=== PATIENT | male | born 1945 | race Caucasian/White ===

== ENCOUNTER 2019-07-01 21:08 | Inpatient (IN) | payer MEDICARE, OTHER ==
[2019-07-01] MEDS ORDERED: Adacel (T-DAP) 0.5 ML SYRINGE ONE (21:15)
[2019-07-01 21:32] LABS: #Eosinphils 0.1 thou/uL (0.0-0.7); #Lymphocytes 3.1 thou/uL (1.20-3.40); #Neutrophils 9.5 thou/uL (1.40-6.50); %Basophils 0.1 % (0.0-1.0); %Eosinophils 0.4 % (0.0-10.0); %Lymphocytes 22.6 % (21.0-51.0); %Neutrophils 69.9 % (42.0-75.0); Hemoglobin 13.9 g/dL (14.0-18.0); Mean Corpuscular HGB CONC 33.6 g/dL (32.0-36.0); Mean Corpuscular Hemoglobin 31.5 pg (27.0-31.0); Mean Corpuscular Volume 93.7 fL (78.0-98.0); Mean Platelet Volume 9.7 fL (7.4-10.4); Platelet Count 160 thou/uL (130-400); RBC Distribution Width 11.6 % (11.5-14.5); White Blood Cell (WBC) Count 13.6 thou/uL (4.8-10.8)
--- NOTE | 2019-07-01 21:37 | RAD ---
EXAM: CHEST ONE VIEW HISTORY: Preoperative evaluation. COMPARISON: None FINDINGS: Cardiac silhouette is magnified by projection. The pulmonary vasculature is within normal limits. The lungs are clear. Mild degenerative changes in the spine. IMPRESSION: No acute cardiopulmonary process.
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
[2019-07-01 21:59] LABS: ALT (SGPT) 17 U/L (8-55); AST (SGOT) 16 U/L (5-34); Albumin 3.9 g/dL (3.4-4.8); Alkaline Phosphatase 74 U/L (40-150); Anion Gap 13 mmol/L (10-20); BUN (Urea Nitrogen) 23 mg/dL (8.4-25.7); Bilirubin, Total 0.6 mg/dL (0.2-1.2); Calc. Creatinine Clearance 0 mL/min (70-130); Calcium 8.9 mg/dL (7.8-10.44); Carbon Dioxide 22 mmol/L (23-31); Chloride 105 mmol/L (98-107); Estimated GFR-MDRD 47; Globulin 2.5 g/dL (2.4-3.5); Glucose 235 mg/dL (83-110); Potassium 4.3 mmol/L (3.5-5.1); Protein, Total 6.4 g/dL (5.8-8.1); Sodium 136 mmol/L (136-145)
[2019-07-01] MEDS ORDERED: Gentamicin 80 MG/2 ML VIAL ONE (22:13)
[2019-07-01] MEDS ORDERED: Gentamicin Sulfate 80 MG in Premix Bag 1 BAG IVPB SCH (22:30)
[2019-07-01] MEDS ORDERED: Sodium Chloride 0.9% 50 ML ONE (23:43)
[2019-07-01] MEDS ORDERED: Bacitracin Zinc Ointment 30 gm TUBE ONE (23:43)
[2019-07-01] MEDS ORDERED: Bupivacaine 0.25% HCL 30 ML VIAL ONE (23:43)
[2019-07-02] MEDS ORDERED: Fentanyl 100 MCG/2 ML VIAL ONE (01:00)
[2019-07-02] MEDS ORDERED: Tobramycin Sulfate 1.2 GM VIAL ONE (01:38)
[2019-07-02] MEDS ORDERED: Bupivacaine PF 0.5% 30 ML VIAL ONE ×2 (02:52→03:05)
[2019-07-02] MEDS ORDERED: Fentanyl 100 MCG/2 ML VIAL SLOW IVP PRN (04:14)
[2019-07-02] MEDS ORDERED: Acetaminophen 325 MG TAB PO PRN (04:14)
[2019-07-02] MEDS ORDERED: Ondansetron PF 4 MG/2 ML Vial IV PRN (04:14)
[2019-07-02] MEDS ORDERED: Morphine 4 MG/ML VIAL SLOW IVP PRN (04:14)
[2019-07-02] MEDS ORDERED: Communication Order-Pharmacy FS SCH (04:15)
[2019-07-02] MEDS ORDERED: Ketorolac Tromethamine 30 MG/ML VIAL IVP PRN (04:18)
[2019-07-02] MEDS ORDERED: Meperidine HCl/PF 25 MG/ML VIAL IM PRN (04:18)
[2019-07-02 05:16] VITALS: BMI 28.8
[2019-07-02] MEDS: Ketorolac Tromethamine 30 MG/ML VIAL IVP SCH ×2 (06:27→09:12)
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
[2019-07-02] MEDS ORDERED: TETANUS AND DIPHTHERIA TOX/PF 0.5 ML DISP.SYRIN IM SCH (09:00)
[2019-07-02] MEDS: Vancomycin HCl 1 GM in Premix Bag 1 BAG IVPB SCH ×2 (09:25→20:47)
[2019-07-02] MEDS: Aspirin 81 mg Enteric Coated Tablet PO SCH ×2 (09:25→20:42)
[2019-07-02] MEDS ORDERED: glipiZIDE 10 MG TAB PO SCH (10:30)
[2019-07-02] MEDS ORDERED: Alogliptin 6.25 MG TAB PO SCH (10:30)
[2019-07-02] MEDS ORDERED: Insulin Regular 300 UNITS/3 ML VIAL SC PRN (15:16)
[2019-07-02] MEDS ORDERED: Dextrose 5% in Water 1,000 ML IV PRN (15:16)
[2019-07-02] MEDS ORDERED: Dextrose 50% Abboject 50 ML SYRINGE SLOW IVP PRN (15:16)
[2019-07-02] MEDS ORDERED: PROPOFOL 200 MG/20 ML VIAL ONE (15:26)
[2019-07-02] MEDS ORDERED: Lidocaine 1% PF 5 ML VIAL ONE (15:26)
[2019-07-02] MEDS ORDERED: Ondansetron PF 4 MG/2 ML Vial ONE (15:26)
[2019-07-02] MEDS ORDERED: Succinylcholine Chloride 20 MG/ML 10 ml SYRINGE FS ONE (15:26)
[2019-07-02] MEDS ORDERED: PHENYLEPHRINE-NS 100 MCG/ML 10 ML SYRINGE ONE (15:26)
--- NOTE | 2019-07-02 16:23 | PDOC.HOSPP ---
- Subjective Encounter Date: 07/02/19 Encounter Time: 16:23 Subjective: Patient seen and examined for med mngt. Pain controlled. No new complaints. No overnight events - Objective Vital Signs & Weight: Vital Signs (12 hours) Temp Pulse Resp BP Pulse Ox 07/02/19 15:31 98.2 F 95 16 129/78 93 L 07/02/19 11:43 98.4 F 95 16 103/58 L 93 L 07/02/19 09:00 95 07/02/19 07:38 98.7 F 104 H 16 101/63 95 07/02/19 04:45 98.9 F 109 H 20 129/81 95 Weight Weight 212 lb 4.8 oz Result Diagrams: 07/03/19 04:39 07/03/19 04:39 Additional Labs: Accuchecks 07/02/19 07/02/19 07/02/19 13:20 11:48 06:35 POC Glucose 233 H 311 H 281 H EKG Reviewed by me: Yes (Tele strips - SR) ROS - Review of Systems Respiratory: denies: cough, dry, shortness of breath, hemoptysis, SOB with excertion, pleuritic pain, sputum, wheezing, other Cardiovascular: denies: chest pain, palpitations, orthopnea, paroxysmal noc. dyspnea, edema, light headedness, other - Medication Medications: Active Medications Generic Name Dose Route Start Last Admin Trade Name Freq PRN Reason Stop Dose Admin Aspirin 81 mg 07/02/19 09:00 07/02/19 09:25 Ecotrin PO 81 mg BID NANCY Administration Vancomycin HCl 1 gm/ Device 200 mls @ 200 mls/hr 07/02/19 09:00 07/02/19 09: 25 IVPB 200 mls Q12HR NANCY Administration Ketorolac Tromethamine 15 mg 07/02/19 06:00 07/02/19 09:12 Toradol IVP 07/03/19 06:01 Not Given Q6HR NANCY - Exam NAD Neck: supple, no JVD Heart: RRR, no gallops Respiratory: CTAB, no rales Gastrointestinal: soft, non-tender, normal bowel sounds Extremities: no cyanosis, no edema Hosp A/P (1) DM2 (diabetes mellitus, type 2) Status: Chronic Qualifiers: Chronic kidney disease stage: stage 3 (moderate) (2) LENY (acute kidney injury) Code(s): N17.9 - ACUTE KIDNEY FAILURE, UNSPECIFIED Status: Acute (3) HTN (hypertension) Code(s): I10 - ESSENTIAL (PRIMARY) HYPERTENSION Status: Chronic (4) Anxiety Code(s): F41.9 - ANXIETY DISORDER, UNSPECIFIED Status: Chronic - Plan Cont Glipizide/Alogliptin Start IVF due to LENY Avoid Nephrotoxic meds Hold Lisinopril due to LENY BMP in AM Will follow. Thank you for this consultation Full code. DPOA - spouse
[2019-07-02] MEDS ORDERED: Polyethylene Glycol 3350 17 GM Packet PO PRN (16:25)
[2019-07-02] MEDS ORDERED: Senokot 8.6 MG TAB PO PRN (16:25)
[2019-07-02] MEDS: Insulin Regular 300 UNITS/3 ML VIAL SC PRN (16:38)
[2019-07-02] MEDS: glipiZIDE 10 MG TAB PO SCH (16:40)
[2019-07-02] MEDS: Sodium Chloride 0.9% 1,000 ML IV SCH (17:50)
[2019-07-02] MEDS: Atorvastatin Calcium 40 MG TAB PO SCH (20:42)
[2019-07-02] MEDS: HYDROcodone/Acetaminophen 5/325 mg Tablet PO PRN (20:42)
[2019-07-03] MEDS: Ketorolac Tromethamine 30 MG/ML VIAL IVP SCH ×2 (00:30→06:23)
[2019-07-03] MEDS: Sodium Chloride 0.9% 1,000 ML IV SCH (03:28)
[2019-07-03 05:48] LABS: #Lymphocytes 2.3 thou/uL (1.20-3.40); #Monocytes 0.9 thou/uL (0.11-0.59); #Neutrophils 4.3 thou/uL (1.40-6.50); %Basophils 0.1 % (0.0-1.0); %Eosinophils 0.5 % (0.0-10.0); %Lymphocytes 30.1 % (21.0-51.0); %Monocytes 12.5 % (0.0-10.0); %Neutrophils 56.7 % (42.0-75.0); Hemoglobin 11.8 g/dL (14.0-18.0); Mean Corpuscular HGB CONC 34.6 g/dL (32.0-36.0); Mean Corpuscular Hemoglobin 32.7 pg (27.0-31.0); Mean Corpuscular Volume 94.4 fL (78.0-98.0); Mean Platelet Volume 9.6 fL (7.4-10.4); Platelet Count 108 thou/uL (130-400); Platelet Morphology Comment Appears Decreased; RBC Distribution Width 11.5 % (11.5-14.5); Red Blood Cell (RBC) Count 3.62 mill/uL (4.70-6.10); White Blood Cell (WBC) Count 7.5 thou/uL (4.8-10.8)
[2019-07-03 05:51] LABS: ALT (SGPT) 11 U/L (8-55); AST (SGOT) 18 U/L (5-34); Albumin 3.4 g/dL (3.4-4.8); Alkaline Phosphatase 62 U/L (40-150); Anion Gap 11 mmol/L (10-20); BUN (Urea Nitrogen) 25 mg/dL (8.4-25.7); Bilirubin, Total 0.5 mg/dL (0.2-1.2); Calc. Creatinine Clearance 72 mL/min (70-130); Calcium 8.4 mg/dL (7.8-10.44); Carbon Dioxide 25 mmol/L (23-31); Chloride 107 mmol/L (98-107); Estimated GFR-MDRD 56; Globulin 2.5 g/dL (2.4-3.5); Glucose 200 mg/dL (83-110); Potassium 4.4 mmol/L (3.5-5.1); Protein, Total 5.9 g/dL (5.8-8.1); Sodium 139 mmol/L (136-145)
[2019-07-03] MEDS: Insulin Regular 300 UNITS/3 ML VIAL SC PRN ×4 (06:27→23:14)
[2019-07-03] MEDS: Alogliptin 6.25 MG TAB PO SCH (08:28)
[2019-07-03] MEDS: glipiZIDE 10 MG TAB PO SCH ×2 (08:28→17:05)
[2019-07-03] MEDS: PARoxetine 20 MG TAB PO SCH (08:29)
[2019-07-03] MEDS: Aspirin 81 mg Enteric Coated Tablet PO SCH ×2 (08:29→20:45)
[2019-07-03] MEDS: Vancomycin HCl 1 GM in Premix Bag 1 BAG IVPB SCH ×2 (08:29→20:45)
[2019-07-03] MEDS: Gabapentin 400 MG CAP PO SCH (08:29)
--- NOTE | 2019-07-03 09:56 | PDOC.HOSPP ---
- Subjective Encounter Date: 07/03/19 Encounter Time: 09:54 Subjective: Patient seen and examined for med mngt. No CP/SOB. No new complaints. No overnight events - Objective Vital Signs & Weight: Vital Signs (12 hours) Temp Pulse Resp BP Pulse Ox 07/03/19 07:38 98.2 F 74 16 120/75 96 07/03/19 03:55 96 07/03/19 03:54 82 20 109/72 90 L 07/03/19 03:27 97.8 F 79 16 99/63 96 07/03/19 00:47 98.8 F 92 96 07/02/19 23:22 99.7 F H 100 16 140/74 93 L Weight Weight 212 lb 4.8 oz I&O: 07/02/19 07/03/19 07/04/19 06:59 06:59 06:59 Intake Total 850 Balance 850 Result Diagrams: 07/03/19 04:39 07/03/19 04:39 Additional Labs: Accuchecks 07/03/19 07/03/19 07/02/19 05:32 00:44 20:07 POC Glucose 184 H 274 H 297 H 07/02/19 07/02/19 07/02/19 15:42 13:20 11:48 POC Glucose 230 H 233 H 311 H ROS - Review of Systems Respiratory: denies: cough, dry, shortness of breath, hemoptysis, SOB with excertion, pleuritic pain, sputum, wheezing, other Cardiovascular: denies: chest pain, palpitations, orthopnea, paroxysmal noc. dyspnea, edema, light headedness, other - Medication Medications: Active Medications Generic Name Dose Route Start Last Admin Trade Name Freq PRN Reason Stop Dose Admin Hydrocodone Bitart/Acetaminophen 1 tab 07/02/19 04:14 07/02/19 20:42 [place] 5/325 PO 1 tab Q4H PRN Administration Moderate Pain (4-6) Alogliptin Benzoate 12.5 mg 07/03/19 09:00 07/03/19 08:28 Alogliptin PO 12.5 mg DAILY NANCY Administration Aspirin 81 mg 07/02/19 09:00 07/03/19 08:29 Ecotrin PO 81 mg BID NANCY Administration Atorvastatin Calcium 40 mg 07/02/19 21:00 07/02/19 20:42 Lipitor PO 40 mg HS NANCY Administration Gabapentin 400 mg 07/03/19 09:00 07/03/19 08:29 Neurontin PO 400 mg DAILY NANCY Administration Glipizide 10 mg 07/02/19 16:30 07/03/19 08:28 Glucotrol PO 10 mg BID-AC NANCY Administration Vancomycin HCl 1 gm/ Device 200 mls @ 200 mls/hr 07/02/19 09:00 07/03/19 08: 29 IVPB 200 mls Q12HR NANCY Administration Insulin Human Regular 0 units 07/02/19 15:16 07/03/19 06:27 Humulin R SC 2 unit .MODERATE SLIDING SC PRN Administration Moderate Correctional Scale Insulin Human Regular 0 units 07/02/19 15:16 07/02/19 21:04 Humulin R SC 3 unit .BEDTIME SLIDING SC PRN Administration Bedtime Correctional Scale Paroxetine HCl 40 mg 07/03/19 09:00 07/03/19 08:29 Paxil PO 40 mg DAILY NANCY Administration - Exam NAD Heart: RRR, no gallops, no rubs Respiratory: CTAB, no wheezes, no rales Gastrointestinal: soft, non-tender, non-distended, normal bowel sounds Extremities: no edema Hosp A/P (1) DM2 (diabetes mellitus, type 2) Status: Chronic Qualifiers: Chronic kidney disease stage: stage 3 (moderate) (2) LENY (acute kidney injury) Code(s): N17.9 - ACUTE KIDNEY FAILURE, UNSPECIFIED Status: Acute (3) HTN (hypertension) Code(s): I10 - ESSENTIAL (PRIMARY) HYPERTENSION Status: Chronic (4) Anxiety Code(s): F41.9 - ANXIETY DISORDER, UNSPECIFIED Status: Chronic - Plan Add Lantus 8 units daily Insulin teaching Cont Glipizide/Alogliptin DC IVF Resume Lisinopril in AM Cont other meds as below
[2019-07-03] MEDS ORDERED: Insulin Glargine 8 UNITS in Pre-Filled Syringe 1 EACH SC SCH (10:00)
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
[2019-07-03 20:29] LABS: Vancomycin, Trough 10.9 ug/mL
[2019-07-03] MEDS: Atorvastatin Calcium 40 MG TAB PO SCH (20:45)
[2019-07-04] MEDS: HYDROcodone/Acetaminophen 5/325 mg Tablet PO PRN (02:29)
[2019-07-04] MEDS: Insulin Regular 300 UNITS/3 ML VIAL SC PRN ×2 (06:29→12:03)
[2019-07-04] MEDS: glipiZIDE 10 MG TAB PO SCH ×2 (06:30→18:52)
[2019-07-04] MEDS: PARoxetine 20 MG TAB PO SCH (08:54)
[2019-07-04] MEDS: Gabapentin 400 MG CAP PO SCH (08:55)
[2019-07-04] MEDS: Alogliptin 6.25 MG TAB PO SCH (08:55)
[2019-07-04] MEDS: Lisinopril 10 MG TAB PO SCH (08:55)
[2019-07-04] MEDS: Aspirin 81 mg Enteric Coated Tablet PO SCH ×2 (08:55→23:14)
[2019-07-04] MEDS: Vancomycin HCl 1 GM in Premix Bag 1 BAG IVPB SCH ×2 (08:55→23:12)
[2019-07-04] MEDS ORDERED: Insulin Glargine 12 UNITS in Pre-Filled Syringe 1 EACH SC SCH ×2 (09:00→09:15)
[2019-07-04] MEDS ORDERED: Insulin Glargine 8 UNITS in Pre-Filled Syringe 1 EACH SC SCH (09:00)
[2019-07-04] MEDS ORDERED: PROPOFOL 200 MG/20 ML VIAL ONE (17:22)
[2019-07-04] MEDS ORDERED: ePHEDrine 50 MG/ML VIAL ONE (17:22)
[2019-07-04] MEDS ORDERED: Ondansetron PF 4 MG/2 ML Vial ONE (17:22)
[2019-07-04] MEDS ORDERED: Ketorolac Tromethamine 30 MG/ML VIAL ONE (17:22)
[2019-07-04] MEDS ORDERED: Lidocaine 1% PF 5 ML VIAL ONE (17:22)
[2019-07-04] MEDS ORDERED: Fentanyl 100 MCG/2 ML VIAL ONE ×2 (20:00→22:20)
[2019-07-04] MEDS ORDERED: Midazolam HCl 2 mg/2 ml Vial ONE (20:00)
[2019-07-04] MEDS ORDERED: Sodium Chloride 0.9% 30 ML ONE (20:05)
[2019-07-04] MEDS ORDERED: Bupivacaine PF 0.5% 30 ML VIAL ONE (20:08)
[2019-07-04] MEDS ORDERED: Bacitracin Zinc Ointment 30 gm TUBE ONE (20:08)
[2019-07-04] MEDS ORDERED: Tobramycin Sulfate 1.2 GM VIAL ONE (21:10)
[2019-07-04] MEDS ORDERED: Promethazine HCl 25 MG/ML VIAL SLOW IVP PRN (22:13)
[2019-07-04] MEDS ORDERED: Promethazine HCl 25 MG/ML VIAL IM PRN (22:13)
[2019-07-04] MEDS ORDERED: Ondansetron HCl/PF 4 MG/2 ML Vial IVP PRN (22:13)
--- NOTE | 2019-07-04 22:19 | RAD ---
XR Hand Lt 2 View History: Wound debridement Comparison: Radiograph 07/01/2019 Findings: Multiple images from the operating room are submitted. Appears be a drain placed. Multiple percutaneous pins. Impression: Fluoroscopy for surgical purposes.
[2019-07-04] MEDS: Atorvastatin Calcium 40 MG TAB PO SCH (23:13)
[2019-07-05] MEDS: glipiZIDE 10 MG TAB PO SCH (06:23)
[2019-07-05] MEDS: Insulin Regular 300 UNITS/3 ML VIAL SC PRN ×2 (06:23→12:58)
[2019-07-05] MEDS: Aspirin 81 mg Enteric Coated Tablet PO SCH (08:13)
[2019-07-05] MEDS: PARoxetine 20 MG TAB PO SCH (08:13)
[2019-07-05] MEDS: Vancomycin HCl 1 GM in Premix Bag 1 BAG IVPB SCH (08:13)
[2019-07-05] MEDS: Alogliptin 6.25 MG TAB PO SCH (08:13)
[2019-07-05] MEDS: Gabapentin 400 MG CAP PO SCH (08:13)
[2019-07-05] MEDS: Lisinopril 10 MG TAB PO SCH (08:14)
[2019-07-05] MEDS: HYDROcodone/Acetaminophen 5/325 mg Tablet PO PRN (08:14)
[2019-07-05 08:41] LABS: Vancomycin, Trough 14.1 ug/mL
[2019-07-05] MEDS ORDERED: Insulin Glargine 12 UNITS in Pre-Filled Syringe 1 EACH SC SCH (09:00)
--- NOTE | 2019-07-05 15:09 | PDOC.EVN ---
Event Note - Event Note Event Note: Pt discharged by surgical service. I met with patient and discussed insulin management. Pt to go home on levemir 10 units daily, to check blood sugars three times a day and show the readings to his primary care provider. Symptoms of hypoglycemia and hyperglycemia discussed. Pt to follow up with primary care provider re: diabetes mellitus management.
[2019-07-05 16:46] VITALS: BP 119/68; TEMP 98
== END 2019-07-05 16:35 | disposition home or self-care (01) | DRG 513 ==
LOC: ERS 21:08 → SURG A 07-02 00:30 → SDC/OP 07-02 00:46 → SURG A 07-02 04:19
PROVIDERS: ADMIT Orthopaedic Surgery Hand Surgery; ATTEND Orthopaedic Surgery Hand Surgery
PROC: 0PSN04Z Reposition Left Carpal with Internal Fixation Device, Open Approach (ICD-10-PCS; principal; 2019-07-02)
PROC: 01Q50ZZ Repair Median Nerve, Open Approach (ICD-10-PCS; 2019-07-02)
PROC: 0PSQ04Z Reposition Left Metacarpal with Internal Fixation Device, Open Approach (ICD-10-PCS; 2019-07-02)
PROC: 8E0XXBZ Computer Assisted Procedure of Upper Extremity (ICD-10-PCS; 2019-07-02)
PROC: 3E0V329 Introduction of Other Anti-infective into Bones, Percutaneous Approach (ICD-10-PCS; 2019-07-02)
DX: S62.315B Displaced fracture of base of fourth metacarpal bone, left hand, initial encounter for open fracture (principal); S52.612B Displaced fracture of left ulna styloid process, initial encounter for open fracture type I or II; N17.9 Acute kidney failure, unspecified; I12.9 Hypertensive chronic kidney disease with stage 1 through stage 4 chronic kidney disease, or unspecified chronic kidney disease; N18.3 Chronic kidney disease, stage 3 (moderate); F41.9 Anxiety disorder, unspecified; E11.22 Type 2 diabetes mellitus with diabetic chronic kidney disease; E78.5 Hyperlipidemia, unspecified; F43.10 Post-traumatic stress disorder, unspecified; F17.220 Nicotine dependence, chewing tobacco, uncomplicated; S63.8X2A Sprain of other part of left wrist and hand, initial encounter; Z79.899 Other long term (current) drug therapy; Z85.828 Personal history of other malignant neoplasm of skin; Z79.84 Long term (current) use of oral hypoglycemic drugs; W32.0XXA Accidental handgun discharge, initial encounter
CPT/HCPCS: 36415; 36416; 71045; 76000; 80053; 80202; 83735; 85025; 86850; 86900; 86901; 90471; 90715; 93005; 96365; C1713; G0390; J1580; J1815; J1885; J2001; J2250; J2405; J2704; J3010; J3260; J3370; J3490; S0020

== ENCOUNTER 2019-08-24 12:58 | Outpatient (CLI) | payer OTHER ==
--- NOTE | 2019-08-24 13:37 | RAD ---
SINUSES ROBERTS VIEW: Date: 08/24/19 INDICATION: MR clearance. FINDINGS: No metallic foreign body identified overlying either orbit. IMPRESSION: Cleared for MRI. POS: OFF
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
== END 2019-08-24 12:59 | disposition home or self-care (01) ==
LOC: BICMRI 12:58
PROVIDERS: ATTEND Orthopaedic Surgery Hand Surgery
DX: S61.402D Unspecified open wound of left hand, subsequent encounter (principal); Z98.890 Other specified postprocedural states
CPT/HCPCS: 70210

== ENCOUNTER 2019-09-01 09:27 | Day surgery (SDC) | payer OTHER ==
[2019-08-31 12:53] VITALS: BMI 26.7
[2019-09-01 11:17] LABS: #Basophils 0.1 thou/uL (0.0-0.2); #Eosinphils 0.1 thou/uL (0.0-0.7); #Monocytes 0.7 thou/uL (0.11-0.59); #Neutrophils 4.5 thou/uL (1.40-6.50); %Eosinophils 1.1 % (0.0-10.0); %Lymphocytes 26.9 % (21.0-51.0); %Monocytes 9.9 % (0.0-10.0); %Neutrophils 61.1 % (42.0-75.0); Mean Corpuscular HGB CONC 33.9 g/dL (32.0-36.0); Mean Corpuscular Volume 94.3 fL (78.0-98.0); Mean Platelet Volume 9.3 fL (7.4-10.4); Platelet Count 167 thou/uL (130-400); RBC Distribution Width 11.6 % (11.5-14.5); White Blood Cell (WBC) Count 7.3 thou/uL (4.8-10.8)
[2019-09-01] MEDS ORDERED: Midazolam HCl 2 mg/2 ml Vial ONE (11:43)
[2019-09-01] MEDS ORDERED: Fentanyl 100 MCG/2 ML VIAL ONE ×2 (11:43→12:28)
[2019-09-01 11:51] LABS: Anion Gap 17 mmol/L (10-20); BUN (Urea Nitrogen) 18 mg/dL (8.4-25.7); Calc. Creatinine Clearance 59 mL/min (70-130); Calcium 9.5 mg/dL (7.8-10.44); Carbon Dioxide 21 mmol/L (23-31); Chloride 105 mmol/L (98-107); Estimated GFR-MDRD 49; Glucose 273 mg/dL (83-110); Potassium 5.4 mmol/L (3.5-5.1); Sodium 138 mmol/L (136-145)
[2019-09-01] MEDS ORDERED: Bacitracin Zinc Ointment 30 gm TUBE ONE (12:25)
[2019-09-01] MEDS ORDERED: Bupivacaine PF 0.5% 30 ML VIAL ONE (12:25)
[2019-09-01] MEDS ORDERED: PROPOFOL 20 ML ONE (12:28)
[2019-09-01] MEDS ORDERED: HYDROmorphone 0.5 MG/0.5 ML SYRINGE ONE (12:28)
[2019-09-01] MEDS ORDERED: Betamet Acet/Betamet Na Ph 30 MG/5 ML VIAL ONE (12:37)
[2019-09-01] MEDS ORDERED: Phenylephrine HCL 10 MG/ML VIAL ONE (14:00)
[2019-09-01] MEDS ORDERED: EPINEPHrine 1 MG/10 ML Abboject SYRINGE ONE ×5 (14:24→14:57)
[2019-09-01] MEDS ORDERED: Fat Emulsion 250 ML ONE (14:27)
[2019-09-01] MEDS ORDERED: Sodium Bicarb 50 MEQ/50 ML VIAL ONE ×4 (14:51→15:26)
[2019-09-01] MEDS ORDERED: Sodium Bicarbonate 2.5 MEQ/5 ML VIAL ONE ×3 (14:51→15:14)
[2019-09-01] MEDS ORDERED: ePHEDrine/0.9% NaCl/PF SYRINGE 50 mg/10 ml ONE (14:52)
[2019-09-01] MEDS ORDERED: EPINEPHrine 1 MG/ML AMP ONE (14:52)
[2019-09-01] MEDS ORDERED: Albumin 5% 500 ML ONE (15:04)
[2019-09-01] MEDS ORDERED: Furosemide 20 MG/2 ML VIAL ONE (15:19)
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
[2019-09-01] MEDS ORDERED: Sodium Chloride 0.9% 10 ML ONE (18:12)
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
[2019-09-05 11:42] LABS: Analyzer IN Cardio OR; Base Excess (BEa) -15.4 mEq/L (-2.0 to +3.0); Carboxyhemoglobin (COHb) 1.3 gm% (0.0-3.0); Hemoglobin (Hb) 11.7 g/dL (14.0-18.0); Potassium - ABG Lab 3.82 mmol/L (3.70-5.30)
[2019-09-05 11:42] LABS: Actual Bicarbonate (HCO3a) 14.7 mEq/L (22-28); Analyzer IN Cardio OR; Base Excess (BEa) -18.1 mEq/L (-2.0 to +3.0); Calcium, Ionized 1.09 mmol/L (1.12-1.30); Carboxyhemoglobin (COHb) 1.3 gm% (0.0-3.0); Hemoglobin (Hb) 13.3 g/dL (14.0-18.0); Potassium - ABG Lab 4.61 mmol/L (3.70-5.30)
[2019-09-05 11:43] LABS: CO2 Tension 69.9 mmHg (35.0-45.0); pH, Arterial 6.94 (7.35-7.45)
[2019-09-05 11:44] LABS: O2 Tension (PaO2) 48.7 mmHg (> 70.0); Puncture Site ALINE
[2019-09-05 11:45] LABS: pH, Arterial 6.92 (7.35-7.45)
[2019-09-05 11:46] LABS: CO2 Tension 89.4 mmHg (35.0-45.0); O2 Tension (PaO2) 50.6 mmHg (> 70.0)
[2019-09-05 11:47] LABS: Puncture Site ALINE
== END 2019-09-01 18:10 | disposition expired ==
LOC: SDC 09:27
PROVIDERS: ATTEND Orthopaedic Surgery Hand Surgery
PROC: 0RGP07Z Fusion of Left Wrist Joint with Autologous Tissue Substitute, Open Approach (ICD-10-PCS; principal; 2019-09-01)
PROC: 3E0T3BZ Introduction of Anesthetic Agent into Peripheral Nerves and Plexi, Percutaneous Approach (ICD-10-PCS; principal; 2019-09-01)
DX: S61.402A Unspecified open wound of left hand, initial encounter (principal); I97.711 Intraoperative cardiac arrest during other surgery; I10 Essential (primary) hypertension; E78.5 Hyperlipidemia, unspecified; F17.200 Nicotine dependence, unspecified, uncomplicated; G89.18 Other acute postprocedural pain; W34.00XA Accidental discharge from unspecified firearms or gun, initial encounter
CPT/HCPCS: 36416; 71045; 76000; 80048; 82805; 85025; J0171; J0690; J0702; J1170; J1940; J2250; J2370; J2704; J3010; J3490; P9045; S0020